=== PATIENT | male | born 2000 | race Caucasian/White ===

== ENCOUNTER 2024-09-28 21:18 | Observation (INO) ==
--- NOTE | 2024-09-28 22:02 | ED Physician Documentation ---
History of Present Illness Stated complaint Stated Complaint: N/V/D Chief complaint Chief Complaint: Abd Pain History obtained from History obtained from: Patient History of Present Illness Timing: Prior to arrival Additonal information Additional information: Patient is a 24-year-old male presenting to the emergency department with nausea vomiting diarrhea symptoms started suddenly around 6 PM this afternoon. Patient notes multiple episodes of vomiting with no relief. He called EMS and they gave him Zofran and fluids feels slightly better but overall feels persistently nauseous and fatigued as well as chilled. 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 It was not until this afternoon the patient began to feel nauseous. Patient has a history of what he suspects is IBS as he has diarrhea occasionally which he notes is not completely abnormal for him no blood in his emesis today. He has had a few episodes of diarrhea with his symptoms. He has no recent travel no recent antibiotic use. He notes he did not eat anything abnormal for lunch today or yesterday. He lives with his parents and they are not having similar symptoms. He has a history of marijuana use but has not used for about 2 days and no history of cannabis hyperemesis. Meds/Allgy Home Medications Ambulatory Orders Medication Instructions Recorded Confirmed sertraline 50 mg tablet 50 mg PO DAILY 09/28/24 09/28/24 Allergies Allergies Allergy/AdvReac Type Severity Reaction Status Date / Time amoxicillin Allergy Hives Verified 09/28/24 21:29 [facility] Medical History Medical History (Updated 09/28/24 @ 21:34 by Mitchell Capone RN) PTSD (post-traumatic stress disorder) Surgical History Surgical History (Updated 09/28/24 @ 21:34 by Mitchell Capone RN) No pertinent past surgical history Social History Social History (Updated 09/28/24 @ 21:34 by Mitchell Capone RN) Smoking Status: Never smoker Do you dip or chew tobacco?: No Do you vape?: No Living arrangement: At home Relationship: Level: Independent Do you feel safe in your home environment?: Yes Suffered physical, verbal, emotional, or financial abuse?: No History of Abuse: No ETOH Use: None Substance Use: denies use and cannabis (any form) Are you sexually active?: No POLST Patient has POLST: No Exam Constitutional normal general appearance HENMT normocephalic, head/scalp atraumatic and hearing grossly normal bilaterally Eyes PERRL, EOMs intact bilaterally and conjunctivae normal Neck/C-Spine visual inspection normal Lymph no lymphadenopathy noted Chest inspection of chest normal Respiratory breath sounds equal bilaterally, normal respiratory effort and clear to auscultation bilaterally Cardiovascular normal heart rate noted, regular rhythm noted, no gallop and no rub Gastrointestinal Abdomen is soft without rebound or guarding Extremities normal to inspection Skin skin color normal Results Vitals Vitals: Vital Signs - 24 hr 09/28/24 21:29 Temperature 36.3 C L Temperature Source Temporal Artery Scan Pulse Rate 79 Respiratory Rate 20 Blood Pressure 111/72 O2 Saturation 99 O2 Source Room air Pain Intensity 4 Oxygen O2 Source Room air PD Medical Decision Making ED course Complexity details: reviewed old records and reviewed results ED course: Patient 24-year-old male presenting to the emergency department with nausea vomiting diarrhea symptoms started shortly prior to arrival with recurrent nausea vomiting till EMS arrived and he was given Zofran. Feels slightly better but continues to have some mild nausea he notes pain is all over his abdomen worse with vomiting. He has not eaten anything abnormal recently no recent sick contacts no viral URI symptoms he has had some diarrhea but that is not abnormal for his history of IBS. Vitals here in the ED are reassuring he is normotensive afebrile nontachycardic. Abdomen is soft to touch with generalized tenderness no guarding on examination.Patient given Reglan Benadryl and fluids here in the ED for persistent nausea and feeling that he just wants to "sleep it off" here in the ED. 2200: Patient taken over by Dr. Cevallos here in the ED. Discharge Plan Discharge Prescriptions: No Action sertraline 50 mg tablet 50 mg PO DAILY Print Language: Armenian Stand Alone Forms: PCP List
[2024-09-28 22:11] LABS: BASOPHILS % (AUTO) 0.3 %; EOSINOPHILS % (AUTO) 0.5 %; HCT - HEMATOCRIT 47.3 % (42.0-52.0); HGB - HEMOGLOBIN 15.9 g/dL (14.0-18.0); LYMPHOCYTES % (AUTO) 3.1 %; MEAN CORPUSCULAR HEMOGLOBIN 28.6 pg (27.0-31.0); MEAN CORPUSCULAR HGB CONC 33.6 g/dL (32.0-36.0); MEAN CORPUSCULAR VOLUME 85.2 fL (80.0-94.0); MEAN PLATELET VOLUME 11.3 fL (7.4-11.4); MONOCYTES % (AUTO) 6.2 %; NEUTROPHILS % (AUTO) 89.6 %; PLT - PLATELET COUNT 215 10^3/uL (130-450); RED BLOOD COUNT 5.55 10^6/uL (4.70-6.10); RED CELL DISTRIBUTION WIDTH 12.3 % (12.0-15.0); WHITE BLOOD COUNT 21.9 x10^3/uL (4.8-10.8)
[2024-09-28 22:14] LABS: ABNORMAL LYMPHS % (MANUAL) 0 %
[2024-09-28 22:24] LABS: ALBUMIN/GLOBULIN RATIO 2.7 (1.0-2.2); BILIRUBIN,TOTAL 0.9 mg/dL (0.2-1.0); CALCIUM 8.6 mg/dL (8.5-10.3); CREATININE 0.8 mg/dL (0.6-1.3); POTASSIUM 3.7 mmol/L (3.5-4.5); TOTAL PROTEIN 5.5 g/dL (6.4-8.9)
[2024-09-28] MEDS: SODIUM CHLORIDE 0.9% 1,000 ML IV STA (22:24)
[2024-09-28] MEDS: METOCLOPRAMIDE 10 MG/2 ML VIAL IVP STA (22:25)
[2024-09-28] MEDS: diphenhydrAMINE INJ 50 MG/ML VIAL IVP STA (22:25)
--- NOTE | 2024-09-28 22:35 | ED Physician Documentation ---
ED Addendum Addendum Addendum: I received signout/turnover of care on this patient from LESLY Gonzalez; please see her note for complete H&P. 3 my shift, patient continued to complain of both nausea and vomiting despite having received Zofran en route (by EMS), diphenhydramine and metoclopramide in the ED, then a second dose of IV Zofran ordered by me. Significant leukocytosis on CBC (WBC 21.9). On my exam, the patient has right lower quadrant tenderness, and thus I have ordered CT A/P with IV contrast. Additionally, the patient tells me he is continuing to have both nausea and vomiting and thus I also ordered 2.5 mg IV droperidol. Subsequently informed by ED RN that droperidol is no longer in stock at [facility]. Thus, I ordered another 4 mg IV Zofran. Radiologist's interpretation of CT is "mucosal hyperemia and wall thickening along portions of nonobstructed small bowel and throughout the colon to the leve l of the rectosigmoid junction. Findings are most reflective of a nonspecific enterocolitis." On reevaluation, patient says he is still having nausea and vomiting. Thus, I then discussed this case with the on-duty [facility] telehealth practitioner who accepts this patient to the hospitalist service at [facility]. Discharge Plan Discharge Patient Disposition: ED Place in Observation Condition: Stable Clinical Impression: Vomiting Interventions: ED Admission Assessment Last Done: 09/29/24 04:40
[2024-09-28 22:39] LABS: BAND NEUTROPHILS % (MANUAL) 14 %; DIFFERENTIAL COMMENT MANUAL DIFFERENTIAL; LYMPHOCYTES # (MANUAL) 1.3 10^3/uL (1.5-3.5); LYMPHOCYTES % (MANUAL) 6 %; MONOCYTES # (MANUAL) 1.1 10^3/uL (0.0-1.0); NEUTROPHILS # (MANUAL) 19.5 10^3/uL (1.5-6.6); PLATELET ESTIMATE, MANUAL NORMAL (130-450,000) (NORMAL); PLATELET MORPHOLOGY NORMAL APPEARANCE (NORMAL); RBC MORPHOLOGY (MULTIPLE) NORMAL APPEARANCE (NORMAL); WBC MORPHOLOGY (MULTIPLE) NORMAL APPEARANCE (NORMAL)
[2024-09-29] MEDS: ONDANSETRON 4 MG/2 ML VIAL IVP STA (01:16)
[2024-09-29] MEDS ORDERED: iohexoL-300 100 ML VIAL ONE (02:00)
[2024-09-29] MEDS: iohexoL-300 100 ML VIAL IVP ONE (02:41)
[2024-09-29] MEDS: ONDANSETRON 4 MG/2 ML VIAL IM STA (02:51)
[2024-09-29] MEDS: droPERidol 2.5 MG/ML VIAL IVP STA (02:56)
[2024-09-29 03:00] LABS: BILIRUBIN,URINE NEGATIVE (NEGATIVE); GLUCOSE, URINE (UA) NEGATIVE (NEGATIVE); KETONES,URINE (UA) 40 mg/dL (NEGATIVE); LEUKOCYTE ESTERASE, URINE NEGATIVE (NEGATIVE); NITRITE,URINE NEGATIVE (NEGATIVE); OCCULT BLOOD,URINE NEGATIVE (NEGATIVE); PH,URINE 5.5 PH (5.0-7.5); PROTEIN,URINE NEGATIVE (NEGATIVE); UROBILINOGEN,URINE 0.2 (NORMAL) E.U./dL (NORMAL)
[2024-09-29 03:01] LABS: CLARITY,URINE CLEAR (CLEAR)
[2024-09-29] MEDS: SODIUM CHLORIDE 0.9% 1,000 ML IV STA (03:55)
--- NOTE | 2024-09-29 04:12 | HISTORY & PHYSICAL EXAMINATION ---
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 did not eat anything out of the ordinary. he last at [employer] sandwich at work. states he developed cramping, and with vomiting and "diarrhea every 30 minutes." reports h/o ibs for which he has not formally evaluated. has h/o depression as well. uses marijuana "regularly," with last use about 2-3 days ago, and states he will now quit. no abdominal surgeries. denies recent abdominal trauma. no dysuria or hematuria. no blood in stool, discoloration, or mucous. Review of Systems Status of ROS: 10 or more systems reviewed and unremarkable except as noted in history and below PFSH Active Problems All Active Problems (Updated 09/29/24 @ 04:41 by Preston Yancey DO) Enterocolitis (Acute) Vomiting (Acute) Medical History Medical History (Updated 09/29/24 @ 04:41 by Preston Yancey DO) PTSD (post-traumatic stress disorder) Surgical History Surgical History (Updated 09/28/24 @ 21:34 by Mitchell Capone RN) No pertinent past surgical history Social History Social History (Updated 09/28/24 @ 21:34 by Mitchell Capone RN) Smoking Status: Never smoker Do you dip or chew tobacco?: No Do you vape?: No Living arrangement: At home Relationship: Level: Independent Do you feel safe in your home environment?: Yes Suffered physical, verbal, emotional, or financial abuse?: No History of Abuse: No ETOH Use: None Substance Use: denies use and cannabis (any form) Are you sexually active?: No POLST Patient has POLST: No Meds/Allgy Home Medications Ambulatory Orders Medication Instructions Recorded Confirmed sertraline 50 mg tablet 50 mg PO DAILY 09/28/24 09/28/24 Allergies Allergies Allergy/AdvReac Type Severity Reaction Status Date / Time amoxicillin Allergy Hives Verified 09/28/24 21:29 Exam Constitutional normal general appearance and no apparent distress HENMT normocephalic, head/scalp atraumatic, hearing grossly normal bilaterally, external ears normal and oral mucous membranes normal Eyes EOMs intact bilaterally Neck/C-Spine visual inspection normal Chest inspection of chest normal Respiratory normal respiratory effort, no retractions and no use of accessory muscles Cardiovascular per ed charting Gastrointestinal abdomen soft to palpation Extremities normal to inspection 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, no movement abnormality noted, no focal motor deficit noted and speech normal Psychiatry mental status grossly normal, oriented x3, thought process normal and cooperative Conclusion/Plan Problem List (1) Enterocolitis: (2) Vomiting: Qualifiers: Nausea presence: with nausea Vomiting type: unspecified Qualified Code(s): R11.2 - Nausea with vomiting, unspecified Plan pt with - - intractable nausea / vomiting / diarrhea enterocolitis findings on imaging also concern for IBS flare-up cannabis hyperemesis syndrome also in differential no bloody stools ivf, supportive meds, cipro + flagyl check stool studies - hypotension from decreased po intake + nausea and vomiting continue IVF, monitor check lactic acid sepsis? - leukocytosis likely in setting of above acute stress reaction vs developing infection cipro + flagyl started at this time check cultures, lactic acid - generalized cramping / aches related to above will also check CK levels given recent intense physical activity - marijuana use possibly contributory to above pt states he will stop uses marijuana "regularly" - depression, nos continue sertraline often co-morbid with ibs/gi syndromes f/u labs, clinical status, electrolytes further orders per clinical course Lab Results 09/28/24 22:05 09/28/24 22:05
[2024-09-29] MEDS ORDERED: ONDANSETRON 4 MG/2 ML VIAL IVP PRN ×2 (04:54→06:11)
[2024-09-29] MEDS ORDERED: PROMETHAZINE INJ 12.5 MG in SODIUM CHLORIDE 0.9% 50 ML IV PRN (04:54)
[2024-09-29] MEDS: CIPROFLOXACIN 400 MG/200 ML 400 MG/200 ML BAG IV SCH (06:08)
[2024-09-29] MEDS ORDERED: ACETAMINOPHEN 325 MG TABLET PO PRN (06:11)
[2024-09-29] MEDS ORDERED: MORPHINE 10 MG/ML VIAL IVP PRN (06:11)
[2024-09-29] MEDS: PROMETHAZINE INJ 12.5 MG in SODIUM CHLORIDE 0.9% 50 ML IV PRN (06:24)
[2024-09-29] MEDS: BENZOCAINE/MENTHOL LOZENGE MM PRN (06:46)
[2024-09-29 06:49] LABS: BASOPHILS % (AUTO) 0.3 %; EOSINOPHILS % (AUTO) 0.1 %; HCT - HEMATOCRIT 47.8 % (42.0-52.0); HGB - HEMOGLOBIN 16.2 g/dL (14.0-18.0); LYMPHOCYTES # (AUTO) 0.3 10^3/uL (1.5-3.5); MEAN CORPUSCULAR HEMOGLOBIN 28.9 pg (27.0-31.0); MEAN CORPUSCULAR HGB CONC 33.9 g/dL (32.0-36.0); MEAN CORPUSCULAR VOLUME 85.2 fL (80.0-94.0); MEAN PLATELET VOLUME 11.2 fL (7.4-11.4); MONOCYTES # (AUTO) 0.4 10^3/uL (0.0-1.0); MONOCYTES % (AUTO) 3.3 %; NEUTROPHILS # (AUTO) 12.5 10^3/uL (1.5-6.6); NEUTROPHILS % (AUTO) 94.1 %; PLT - PLATELET COUNT 222 10^3/uL (130-450); RED BLOOD COUNT 5.61 10^6/uL (4.70-6.10); RED CELL DISTRIBUTION WIDTH 12.6 % (12.0-15.0); WHITE BLOOD COUNT 13.3 x10^3/uL (4.8-10.8)
[2024-09-29] MEDS: LACTATED RINGERS 1,000 ML IV SCH ×3 (06:51→11:42)
[2024-09-29 07:09] LABS: ALBUMIN 4.2 g/dL (3.2-5.5); ALBUMIN/GLOBULIN RATIO 2.6 (1.0-2.2); BILIRUBIN,TOTAL 1.3 mg/dL (0.2-1.0); CALCIUM 8.9 mg/dL (8.5-10.3); MAGNESIUM 1.9 mg/dL (1.7-2.3); POTASSIUM 3.6 mmol/L (3.5-4.5); TOTAL PROTEIN 5.8 g/dL (6.4-8.9)
[2024-09-29] MEDS: metroNIDAZOLE 500 MG/100 ML 500 MG/100 ML BAG IV SCH (07:17)
--- NOTE | 2024-09-29 08:23 | CT Report ---
PROCEDURE: CT Abdomen/Pelvis W INDICATIONS: RLQ pain/TTP CONTRAST: 100cc [id number] TECHNIQUE: After the administration of intravenous contrast, a CT scan of the abdomen and pelvis was performed. Images were recorded and evaluated at appropriate window settings. Reformats: coronal and sagittal. F or radiation dose reduction, the following was used: automated exposure control, adjustment of mA and /or kV according to patient size. COMPARISON: None. FINDINGS: Image quality: Diagnostic. Lower chest: Unremarkable. Liver: No solid mass. Gallbladder: No radiopaque stones or wall thickening. Biliary tree: No intrahepatic or extrahepatic dilation, accounting for age. Spleen: No splenomegaly. Pancreas: No pancreatic ductal dilation. Adrenals: No adrenal nodule. Kidneys and ureters: No hydronephrosis. No renal cystic lesion which requires follow up. No solid mas s. Stomach, bowel and peritoneum: There is no evidence of bowel obstruction. Mild small bowel wall thick ening and hyperemia is seen. Mild fluid distention of colon loops extending to the rectosigmoid junct ion is also noted. Appendix is not definitively identified. No focal inflammatory changes are seen in right lower quadrant. No abscess collection. No free fluid of free air. Lymph nodes: No central or retroperitoneal adenopathy. Vessels: No infrarenal aortic aneurysm. Patent portal vein. PELVIS Reproductive organs: Unremarkable. Bladder: No abnormal wall thickening, accounting for underdistention. Pelvic lymph nodes: No pelvic adenopathy by size criteria. Bones: No aggressive osseous abnormality. Other: No significant ventral or inguinal hernia. IMPRESSION: 1. Appendix is not definitively seen. No secondary CT signs of acute appendicitis in right lower quad rant. 2. Mucosal hyperemia and mild wall thickening involving small bowel loops. Fluid distention of colon loops extending to the level of rectosigmoid junction with mild colonic wall thickening. Finding is concerning for infectious or inflammatory enterocolitis. No abscess collection. No free fluid of free air. 3. No evidence of bowel obstruction. Findings are concordant with preliminary interpretation provided by [facility]. Reviewed by: Dino Stockton MD on 09/29/2024 8:21 AM PDT Approved by: Dino Stockton MD on 09/29/2024 8:21 AM PDT Station ID: [id number]
[2024-09-29] MEDS ORDERED: LACTOBACILLUS RHAMNOSUS GG CAPSULE PO SCH (09:00)
[2024-09-29] MEDS ORDERED: PANTOPRAZOLE 40 MG VIAL IVP SCH (09:00)
--- NOTE | 2024-09-29 09:06 | PHARMACY PROGRESS NOTE ---
Best Possible Medication History Admit Date and Time: 09/29/24 0347 Home Medications Medication Instructions Recorded Confirmed Type sertraline 50 mg tablet 50 mg PO DAILY 09/28/24 09/28/24 History Processed by: Pharmacy Medications reviewed in ED?: No Medication History completed: Yes Patient Interview: Completed Secondary Source(s): Insurance records [facility] Statement: Per PhT interview with patient and review of [employer] insurance records. As the person ultimately responsible for medication therapy, providers are able to order a medication from an existing home medication list in [facility] via the "Reconcile Routine" prior to Confirmation of that medication by patient support associate. Such practice is discouraged except when the physician, in their clinical judgment, deems that a medical need exists for a medication without regard to previous use.
[2024-09-29] MEDS: LACTOBACILLUS RHAMNOSUS GG CAPSULE PO SCH (10:00)
[2024-09-29] MEDS: SERTRALINE 50 MG TABLET PO SCH (10:00)
[2024-09-29] MEDS: PANTOPRAZOLE 40 MG VIAL IVP SCH (10:00)
[2024-09-30 03:07] LABS: BASOPHILS % (AUTO) 0.5 %; EOSINOPHILS # (AUTO) 0.4 10^3/uL (0.0-0.7); EOSINOPHILS % (AUTO) 7.8 %; HCT - HEMATOCRIT 42.9 % (42.0-52.0); HGB - HEMOGLOBIN 14.1 g/dL (14.0-18.0); LYMPHOCYTES # (AUTO) 1.4 10^3/uL (1.5-3.5); LYMPHOCYTES % (AUTO) 24.3 %; MEAN CORPUSCULAR HEMOGLOBIN 28.8 pg (27.0-31.0); MEAN CORPUSCULAR HGB CONC 32.9 g/dL (32.0-36.0); MEAN CORPUSCULAR VOLUME 87.6 fL (80.0-94.0); MEAN PLATELET VOLUME 11.2 fL (7.4-11.4); MONOCYTES # (AUTO) 0.8 10^3/uL (0.0-1.0); MONOCYTES % (AUTO) 14.2 %; PLT - PLATELET COUNT 173 10^3/uL (130-450); RED CELL DISTRIBUTION WIDTH 12.9 % (12.0-15.0); WHITE BLOOD COUNT 5.6 x10^3/uL (4.8-10.8)
[2024-09-30 03:18] LABS: MAGNESIUM 1.8 mg/dL (1.7-2.3)
[2024-09-30 03:24] LABS: CALCIUM 8.5 mg/dL (8.5-10.3); CREATININE 0.9 mg/dL (0.6-1.3); POTASSIUM 3.2 mmol/L (3.5-4.5)
[2024-09-30] MEDS: MAGNESIUM SULFATE 2 GRAM 2 GM/50 ML BAG IV ONE (04:07)
[2024-09-30] MEDS: POTASSIUM CHLORIDE 20 MEQ TABLET PO ONE ×2 (04:08→08:21)
[2024-09-30 07:41] VITALS: BP 100/56; TEMP 97.3; O2SAT 98
--- NOTE | 2024-09-30 09:13 | Discharge Summary ---
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 did not eat anything out of the ordinary. he last at [employer] at work. states he developed cramping, and with vomiting and "diarrhea every 30 minutes." reports h/o ibs for which he has not formally evaluated. has h/o depression as well. uses marijuana "regularly," with last use about 2-3 days ago, and states he will now quit. no abdominal surgeries. denies recent abdominal trauma. no dysuria or hematuria. no blood in stool, discoloration, or mucous. HOSPITAL COURSE Hospital Course: Patient was admitted for intractable nausea and vomiting and started on IV fluids. He was also treated with Cipro and Flagyl until the day of discharge. On the morning of discharge the patient was feeling back to normal, able to tolerate a full liquid diet with no problems, had not had any vomiting for over 24 hours, and minimal diarrhea. He was deemed to be medically stable for discharge. ALLERGIES Allergies Allergy/AdvReac Type Severity Reaction Status Date / Time amoxicillin Allergy Hives Verified 09/28/24 21:29 MEDICATIONS Ambulatory Orders Medication Instructions Recorded Confirmed sertraline 50 mg tablet 50 mg PO DAILY 09/28/24 09/28/24 PHYSICAL EXAM AT DISCHARGE General Appearance: positive No acute distress and Alert Respiratory: positive No respiratory distress and Breath sounds nml; negative Wheezes Cardiovascular: positive Regular rate & rhythm, No murmur and No gallop Abdomen: positive Non-tender, No organomegaly, Nml bowel sounds and No distention Skin: positive Color nml Extremities: positive Nml appearance Neurologic/Psychiatric: positive Oriented x3, CN's nml (2-12) and Motor nml LABS 09/30/24 03:01 09/30/24 03:01 DIAGNOSTIC IMAGING Diagnostic Imaging Results: Final report reviewed TIME SPENT Time Spent in Discharge (Minutes): 36 Discharge Plan Discharge Patient Disposition: Home, Self Care Condition: Stable Medically Cleared Date:: 09/30/24 Prescriptions: Continued sertraline 50 mg tablet 50 mg PO DAILY Diet: Regular Interventions: Belongings Inventory Last Done: 09/29/24 15:04 Print Language: Bulgarian Patient Instructions: Diarrhea Stand Alone Forms: PCP List
== END 2024-09-30 10:17 | disposition home or self-care (01) ==
LOC: ED 21:18 → MS2 21:18
PROVIDERS: ADMIT Student in an Organized Health Care Education/Training Program; ATTEND Student in an Organized Health Care Education/Training Program
DX: I95.9 Hypotension, unspecified; F32.A Depression, unspecified; D72.829 Elevated white blood cell count, unspecified; K52.9 Noninfective gastroenteritis and colitis, unspecified